=== PATIENT | female | born 1995 | race African-American/Black ===

== ENCOUNTER 2021-02-16 16:41 | Emergency (ER) | payer OTHER, SELFPAY ==
[2021-02-16 16:43] VITALS: BP 106/62; PULSE 88; RESP 18; TEMP 36.8; O2SAT 100
--- NOTE | 2021-02-16 17:07 | PC.NURSE ---
1645- Call from ER with patient being brought over for DFM. Upon arrival, patient states that she has a headache, earache, nausea, vomiting and a fever x2 days. Patient states that baby is now moving. FHT doppled at 145. Patient taken back to ER via wheelchair for evaluation.
--- NOTE | 2021-02-16 17:14 | ED_ITS ---
HPI - Ear Problem General Chief complaint: Ear Stated complaint: fever, ear pain, headache Time Seen by Provider: 02/16/21 16:50 Source: patient Mode of arrival: ambulatory Limitations: no limitations History of Present Illness HPI Narrative: Patient is a 25-year-old female complaining of right ear pain, 8 out of 10, dull, aching started 2 days ago. Patient denies any injury to the ear. Patient denies any recent history of swimming. Patient denies any ear discharge, fever or chills. Review of Systems Review of Systems: All systems reviewed & are unremarkable except as noted in HPI and below Constitutional: Constitutional: Reports as per HPI PMFSH Comments Past medical history: None Family history: Noncontributory Social history: Non-smoker, no EtOH use, denies any drug use Exam Const: General: no acute distress and alert Orientation/consciousness: patient oriented x3 HENMT: Ears: TM's normal bilaterally General nose exam: no nasal discharge noted and no epistaxis Face and sinus: normal facial exam Mouth: Yes Normal oral and palatal mucosa present, Yes lip normal and Yes moist mucous membranes Throat: posterior oropharynx normal Other: Erythematous right external ear canal Eyes: Conjunctivae: conjunctivae normal Neck: Neck: normal visual inspection Resp: Effort & Inspection: normal respiratory effort Skin: General skin exam: normal color Extrem: General: normal to inspection Psych: Mental Status: mental status grossly normal Affect: normal affect Course Vital Signs Vital signs: Vital Signs Temperature 36.8 C 02/16/21 16:43 Pulse Rate 88 02/16/21 16:43 Respiratory Rate 18 02/16/21 16:43 Blood Pressure 106/62 02/16/21 16:43 Pulse Oximetry 100 02/16/21 16:43 Temperature 36.8 C 02/16/21 16:43 Pulse Rate 88 02/16/21 16:43 Respiratory Rate 18 02/16/21 16:43 Blood Pressure 106/62 02/16/21 16:43 Pulse Oximetry 100 02/16/21 16:43 Medical Decision Making Vital Signs Vital Signs: Vital Signs Temperature 36.8 C 02/16/21 16:43 Pulse Rate 88 02/16/21 16:43 Respiratory Rate 18 02/16/21 16:43 Blood Pressure 106/62 02/16/21 16:43 Pulse Oximetry 100 02/16/21 16:43 Temperature 36.8 C 02/16/21 16:43 Pulse Rate 88 02/16/21 16:43 Respiratory Rate 18 02/16/21 16:43 Blood Pressure 106/62 02/16/21 16:43 Pulse Oximetry 100 02/16/21 16:43 Discharge Plan Discharge Clinical Impression: Otitis externa Qualifiers: Otitis externa type: unspecified type Chronicity: acute Laterality: right Qualified Code(s): H60.501 - Unspecified acute noninfective otitis externa, right ear Condition: Improved Prescriptions: New acetic acid 2 % solution 3 drp RIGHT EAR Q6H Qty: 15 RF: 0 Follow-up/Referrals: PHYSICIAN,MANUFACTURING OPERATIONS MANAGER [Primary Care Provider] - 02/18/21 Time of Disposition: 17:20
== END 2021-02-16 18:11 | disposition home or self-care (01) ==
LOC: ANHED 17:35
PROVIDERS: Emergency Provider Emergency Medicine
DX: H60.501 Unspecified acute noninfective otitis externa, right ear (principal)
CPT/HCPCS: 99283